=== PATIENT | male | born 1970 | race Two or more races ===

== ENCOUNTER 2018-07-13 18:02 | Emergency (ER) | payer OTHER ==
[~2018-07-13] VITALS: Ht 175.3 cm; Wt 75.0 kg
[2018-07-13] MEDS ORDERED: ONDANSETRON HCL 4MG/2ML INJ IV STA (21:34)
[2018-07-13] MEDS ORDERED: KETOROLAC 30MG/ML VIAL IV STA (21:34)
[2018-07-13] MEDS ORDERED: ACETAMINOPHEN 325MG TABLET PO STA (21:34)
[2018-07-13] MEDS ORDERED: PIPERACILLIN/TAZ 3.375G PREMIX 50 ML IV ONE (21:45)
[2018-07-13] MEDS ORDERED: VANCOMYCIN 1 G PREMIX 200 ML IV ONE (21:45)
[2018-07-13] MEDS ORDERED: SODIUM CHLORIDE 0.9% 1000ML BAG (SEPSIS BOLUS) IV ONE (21:45)
[2018-07-13 23:13] LABS: BASOPHILS % 1.2 % (0.0-2.0); EOSINOPHILS % 2.6 % (0.0-5.0); HEMATOCRIT. 43.3 % (42.0-52.0); LYMPHOCYTES % 26.6 % (20.0-50.0); MEAN CORPUSCULAR HEMOGLOBIN 33.1 pg (28.0-32.0); MEAN CORPUSCULAR VOLUME 89.6 fL (80.0-94.0); MEAN PLATELET VOLUME 7.9 fl (7.4-10.4); MONOCYTES % 7.7 % (2.0-8.0); NEUTROPHILS % 61.9 % (40.0-76.0); PLATELET 184 x1000/uL (130-400); RED BLOOD CELL COUNT 4.83 mill/uL (4.7-6.1); RED CELL DISTRIBUTION WIDTH 13.2 % (11.6-14.6)
[2018-07-13 23:19] LABS: CHLORIDE 101 mEq/L (98-107); INR 1.2; PROTHROMBIN TIME 11.6 sec (9.1-11.1)
[2018-07-13 23:25] LABS: ETHANOL BLOOD < 10 mg/dL
[2018-07-13 23:29] LABS: CREATINE KINASE 98 IU/L (39-308)
[2018-07-13] MEDS ORDERED: IPRATROPIUM/ALBUTEROL 0.5-3(2.5)MG/3ML NEB HHN ONE (23:45)
[2018-07-13] MEDS ORDERED: METHYLPREDNISOLONE SOD SUCC 125 MG/2 ML VIAL IV ONE (23:45)
[2018-07-14] MEDS ORDERED: ONDANSETRON HCL 4MG/2ML INJ IV ONE (01:15)
[2018-07-14] MEDS ORDERED: DIPHENHYDRAMINE 50MG/ML VIAL IV ONE (02:00)
[2018-07-14 02:10] VITALS: BP 121/76
== END 2018-07-14 02:27 | disposition home or self-care (01) ==
LOC: ER 18:02 → CANBEDREQ 07-14 02:36
DX: J40 Bronchitis, not specified as acute or chronic (principal); E86.0 Dehydration
CPT/HCPCS: 36415; 71045; 80053; 82550; 83605; 83880; 84145; 84484; 85025; 85610; 87040; 93005; 94640; 96365; 96366; 96367; 96375; 96376; 99285; G0482; J1200; J1885; J2405; J2543; J2930; J3370; J7030; J7620